=== PATIENT | male | born 1955 | race Caucasian/White ===

== ENCOUNTER 2017-12-15 18:13 | Emergency (ER) | payer OTHER ==
--- NOTE | 2017-12-15 21:01 | ED ---
Complex/Multi-Sys Presentation - HPI Summary HPI Summary: This is scribe Kin Schmitt documenting for attending Arnie Reynoso MD. This patient is a 62 year old M presenting to [facility] with a chief complaint of trauma from a fall down 3 steps earlier today. The patient rates the pain 9/10 in severity. He reports that his R knee gave out and he landed on his R shoulder. Patient reports R hip pain and abrasion to L knee. He reports a Hx of nerve impingement on c7 and t1 on his nerve c8. I, Dr. Reynoso, personally performed the services described in this documentation as scribed in my presence and it is both accurate and complete. - History Of Current Complaint Chief Complaint: EDTraumaMultiple Time Seen by Provider: 12/15/17 20:28 Hx Obtained From: Patient Onset/Duration: Sudden Onset, Lasting Hours - Earlier today, Still Present Timing: Constant, Hours - Since earlier today Severity Currently: Severe Severity Initially: Severe Location: Pain At: - R shoulder, R hip, and abrasion at L knee Associated Signs And Symptoms: Positive: Recent Trauma, Other - R hip pain, L knee abrasion - Allergies/Home Medications Allergies/Adverse Reactions: Allergies Allergy/AdvReac Type Severity Reaction Status Date / Time No Known Allergies Allergy Verified 12/15/17 18:41 PMH/Surg Hx/FS Hx/Imm Hx Endocrine/Hematology History: Denies: Hx Diabetes Cardiovascular History: Reports: Hx Hypertension - on meds Denies: Hx Pacemaker/ICD Respiratory History: Denies: Hx Asthma History: Reports: Other Problems/Disorders - elevated PSA- bx scheduled for 06/2014 Musculoskeletal History: Reports: Hx Back Problems - chronic back and neck pain , Other Musculoskeletal History - Right meniscus repair for bursitis May 2016 Sensory History: Reports: Hx Contacts or Glasses Denies: Hx Hearing Aid Opthamlomology History: Reports: Hx Contacts or Glasses Neurological History: Reports: Other Neuro Impairments/Disorders - PAIN CLINIC PT. Psychiatric History: Reports: Hx Anxiety, Hx Depression Denies: Hx Panic Disorder - Surgical History Surgery Procedure, Year, and Place: LEFT SHOULDER 1968 [place],PROSTATE BIOPSY, right meniscus repair 05/22/16 Infectious Disease History: No Infectious Disease History: Denies: Traveled Outside the [place] in Last 30 Days - Family History Known Family History: Negative: Cardiac Disease, Diabetes - Social History Occupation: Retired Alcohol Use: Weekly Alcohol Amount: 4-5 drinks/week Substance Use Type: Reports: None Substance Use Comment - Amount & Last Used: rarely smokes marijuana Smoking Status (MU): Never Smoked Tobacco Review of Systems Negative: Fever Positive: Other - R shoulder pain, R hip pain Positive: Other - L knee abrasion All Other Systems Reviewed And Are Negative: Yes Physical Exam - Summary Physical Exam Summary: VITAL SIGNS: Reviewed. GENERAL: Patient is a well-developed and nourished MALE who is lying comfortable in the stretcher. Patient is not in any acute respiratory distress. HEAD AND FACE: No signs of trauma. No ecchymosis, hematomas or skull depressions. No sinus tenderness. EYES: PERRLA, EOMI x 2, No injected conjunctiva, no nystagmus. EARS: Hearing grossly intact. Ear canals and tympanic membranes are within normal limits. MOUTH: Oropharynx within normal limits. NECK: Supple, trachea is midline, no adenopathy, no JVD, no carotid bruit, no c- spine tenderness, neck with full ROM. CHEST: Symmetric, no tenderness at palpation LUNGS: Clear to auscultation bilaterally. No wheezing or crackles. CVS: Regular rate and rhythm, S1 and S2 present, no murmurs or gallops appreciated. ABDOMEN: Soft, non-tender. No signs of distention. No rebound no guarding, and no masses palpated. Bowel sounds are normal. EXTREMITIES: Tenderness over R shoulder. Decreased ROM because of pain. NEURO: Alert and oriented x 3. No acute neurological deficits. Speech is normal and follows commands. Triage Information Reviewed: Yes Vital Signs On Initial Exam: Initial Vitals Temp Pulse Resp BP Pulse Ox 98.7 F 57 18 139/95 97 12/15/17 18:37 12/15/17 18:37 12/15/17 18:37 12/15/17 18:37 12/15/17 18:37 Vital Signs Reviewed: Yes Diagnostics - Vital Signs Vital Signs Temp Pulse Resp BP Pulse Ox 12/15/17 20:26 56 139/93 94 12/15/17 18:37 98.7 F 57 18 139/95 97 - Laboratory Lab Statement: Any lab studies that have been ordered have been reviewed, and results considered in the medical decision making process. - Radiology R Shoulder X-Ray Radiology Interpretation Completed By: ED Physician - 21:28. No fracture. Pending official report. Re-Evaluation - Re-Evaluation 1 Re-Evaluation Time: 21:21 Comment: Discussed with patient his X-Ray results. Referred him to ortho [facility] [employer] , Dr. Yañez. Complex Multi-Symp Course/Dx Assessment/Plan: R shoulder pain. Use sling for comfort. He naproxyn he can use for pain. Told to follow up with Dr. Yañez from ortho. - Diagnoses Provider Diagnoses: Right shoulder pain Discharge - Sign-Out/Discharge Documenting (check all that apply): Patient Departure - D/C - Discharge Plan Condition: Stable Disposition: HOME Patient Education Materials: Shoulder Pain (ED) Referrals: James Nieves MD [Primary Care Provider] - (Follow up within 1-2 days.) Additional Instructions: Use sling for comfort and naproxyn that you have for pain. Follow up with Michoacano Yañez MD from ortho. RETURN TO THE EMERGENCY DEPARTMENT FOR CHANGING OR WORSENING SYMPTOMS. FOLLOW UP WITH PCP IN 1-2 DAYS.
[2017-12-15 21:56] VITALS: BP 140/94
--- NOTE | 2017-12-16 07:07 | RAD ---
INDICATION: Right shoulder pain after a fall COMPARISON: Most recent shoulder radiograph is dated June 19, 2015 TECHNIQUE: 4 views of the right shoulder were obtained. FINDINGS: The adequately corticated bones are in normal alignment. Joint spaces appear maintained. No fracture, dislocation or focal bony abnormality is seen. IMPRESSION: Normal radiograph of the right shoulder. If the patient's symptoms persist, follow-up imaging is recommended. R0
== END 2017-12-15 21:56 | disposition home or self-care (01) ==
LOC: ED 18:13
DX: M25.511 Pain in right shoulder (principal); M25.551 Pain in right hip; S80.212A Abrasion, left knee, initial encounter; W10.9XXA Fall (on) (from) unspecified stairs and steps, initial encounter; Y93.9 Activity, unspecified; Y92.9 Unspecified place or not applicable; I10 Essential (primary) hypertension
CPT/HCPCS: 99282